=== PATIENT | male | born 1965 | race Caucasian/White ===

== ENCOUNTER 2017-12-06 01:13 | Day surgery (SDC) | payer BC ==
[~2017-12-06] VITALS: Ht 190.5 cm; Wt 113.4 kg
[~2017-12-06 01:13] MED LIST: ATOR20TA22 PO; DOXY-181 PO; ENOX100D2 SC; LOSA-54 PO; RIVA20TA PO; WARF5VIA3 PO
[2017-12-06] MEDS ORDERED: PROPOFOL EMUL(*) 10MG/ML 20 ML 40 ML ONE (06:59)
[2017-12-06] MEDS: LIDOCAINE/SOD BICARB 8.4% SYR ID ONE ×2 (08:07→08:43)
[2017-12-06 08:50] VITALS: BP 134/95
[2017-12-06] MEDS ORDERED: PROPOFOL EMUL(*) 10MG/ML 20 ML 20 ML ONE (09:26)
[2017-12-06 10:02] VITALS: BP 108/73
[2017-12-06 10:19] VITALS: BP 125/82
[2017-12-06 10:26] VITALS: BP 139/88
[2017-12-06 10:27] VITALS: BP 133/96
[2017-12-06] MEDS ORDERED: NORMOSOL R SOLN(*) 1000 ML BAG 1,000 ML IV PRN (11:45)
== END 2017-12-06 10:35 | disposition home or self-care (01) ==
LOC: OR 01:13
PROVIDERS: ATTEND Family Medicine
DX: Z12.11 Encounter for screening for malignant neoplasm of colon (principal)
CPT/HCPCS: 00812; 45378; J2704